=== PATIENT | female | born 1990 | race Caucasian/White ===

== ENCOUNTER 2023-11-26 06:41 | Emergency (ER) | payer BC, SELFPAY ==
[2023-11-26 06:43] VITALS: BP 130/76; PULSE 71; TEMP 36.9; O2SAT 99; BMI 30.4
--- NOTE | 2023-11-26 06:50 | XR_ITS ---
[address] [address] Patient Name: ARLETTE GARCIA MRN: [id number] date: 1990 Sex: F Assigned Patient Location: ER Current Patient Location: ER Accession/Order Number: [id number] Exam Date: 11/26/2023 07:10 Report Date: 11/26/2023 07:56 At the request of: NANCY MARTINEZ Procedure: XR elbow LT min 3V PROCEDURE: XR elbow LT min 3V, XR shoulder LT min 2V, 11/26/2023 7:10 AM EDT CLINICAL INDICATIONS: Traumatic injury, fall one week earlier, left shoulder and elbow pain COMPARISON: None TECHNIQUE: Left shoulder 4 views. Left elbow 3 views. FINDINGS: LEFT SHOULDER: The bones are normal in density. Fracture or malalignment is not seen. Joint spaces are preserved. Chest wall abnormality is not evident. Regional soft tissues are unremarkable. LEFT ELBOW: The bones are normal in density. Fracture or malalignment is not seen. Joint spaces are preserved. No elbow effusion. Regional soft tissues are unremarkable. XR/XR elbow LT min 3V IMPRESSION: 1. No acute traumatic left shoulder or left elbow pathology. Electronically authenticated by: EDGAR AGUIRRE Date: 11/26/2023 07:56
--- NOTE | 2023-11-26 07:05 | XR_ITS ---
The [address] [address] Patient Name: ARLETTE GARCIA MRN: [id number] date: 1990 Sex: F Assigned Patient Location: ER Current Patient Location: ER Accession/Order Number: [id number] Exam Date: 11/26/2023 07:10 Report Date: 11/26/2023 07:45 At the request of: GONZALO CASTILLO Procedure: XR wrist LT min 3V EXAM: XR wrist LT min 3V HISTORY: Fall. COMPARISON: None. TECHNIQUE: AP, oblique and lateral views of the left wrist performed. FINDINGS: The bony alignment and mineralization are normal. There is no fracture. The joint spaces are normal. There is no soft tissue abnormality. XR/XR wrist LT min 3V IMPRESSION: Unremarkable left wrist series. There is no acute fracture or malalignment. Electronically authenticated by: HENRY MATHUR Date: 11/26/2023 07:45
--- NOTE | 2023-11-26 07:05 | XR_ITS ---
[address] [address] Patient Name: ARLETTE GARCIA MRN: [id number] date: 1990 Sex: F Assigned Patient Location: ER Current Patient Location: ER Accession/Order Number: [id number] Exam Date: 11/26/2023 07:10 Report Date: 11/26/2023 07:56 At the request of: GONZALO CASTILLO Procedure: XR shoulder LT min 2V PROCEDURE: XR elbow LT min 3V, XR shoulder LT min 2V, 11/26/2023 7:10 AM EDT CLINICAL INDICATIONS: Traumatic injury, fall one week earlier, left shoulder and elbow pain COMPARISON: None TECHNIQUE: Left shoulder 4 views. Left elbow 3 views. FINDINGS: LEFT SHOULDER: The bones are normal in density. Fracture or malalignment is not seen. Joint spaces are preserved. Chest wall abnormality is not evident. Regional soft tissues are unremarkable. LEFT ELBOW: The bones are normal in density. Fracture or malalignment is not seen. Joint spaces are preserved. No elbow effusion. Regional soft tissues are unremarkable. XR/XR shoulder LT min 2V IMPRESSION: 1. No acute traumatic left shoulder or left elbow pathology. Electronically authenticated by: EDGAR AGUIRRE Date: 11/26/2023 07:56
--- NOTE | 2023-11-26 07:07 | ED_ITS ---
HPI HPI - General Adult General Chief complaint: Extremity Injury, Upper Stated complaint: UPPER EXTREMITY INJURY/FALL Time Seen by Provider: 11/26/23 06:58 Source: patient Mode of arrival: walk-in Limitations: no limitations History of Present Illness HPI narrative: Patient presents to ED complaining of left upper extremity pain. She said she fell not last Monday but the 1 before she fell onto mostly her elbow. She does have Left wrist and left shoulder pain as well. She does have some bruising on her elbow. She also has Some bruising on her left forearm and right knee but she states that is from softball and not from the fall last week.No neck pain no headache no loss of consciousness. No abdominal pain no other complaints at this time. Related Data Home Medications ?Medication ?Instructions ?Recorded ?Confirmed No Known Home Medications 11/26/23 11/26/23 Allergies Allergy/AdvReac Type Severity Reaction Status Date / Time No Known Drug Allergies Allergy Verified 11/26/23 06:47 Opioid HPI Opioid Management Most Recent Opioid Data: Last ED Pain Assessment 11/26/23 07:05 Review of Systems ROS Status of ROS 10 or more systems reviewed and unremark able except as noted in history and below Exam Narrative Exam Narrative: General: alert, no acute distress Cardiovascular: regular rate and rhythm, normal peripheral perfusion. Respiratory: Lungs CTA, respirations non labored. Extremities: Patient has tenderness to the left elbow left wrist and left shoulder. She is tenderness with raising her arm tenderness with palpation of the wrist and tenderness with supination in the elbow. Normal distal pulses and sensation Neurological: oriented x 4, LOC appropriate for age. Constitutional Vital Signs, click to edit/add: Last Vital Signs Temp 98.4 F 11/26/23 06:43 Pulse 71 11/26/23 06:43 Resp 18 11/26/23 06:43 BP 130/76 11/26/23 06:43 Pulse Ox 99 11/26/23 06:43 O2 Del Method Room Air 11/26/23 06:43 Course Vital Signs Vital signs: Vital Signs Temperature 98.4 F 11/26/23 06:43 Pulse Rate 71 11/26/23 06:43 Respiratory Rate 18 11/26/23 06:43 Blood Pressure 130/76 11/26/23 06:43 Pulse Oximetry 99 11/26/23 06:43 Oxygen Delivery Method Room Air 11/26/23 06:43 Temperature 98.4 F 11/26/23 06:43 Pulse Rate 71 11/26/23 06:43 Respiratory Rate 18 11/26/23 06:43 Blood Pressure 130/76 11/26/23 06:43 Pulse Oximetry 99 11/26/23 06:43 Oxygen Delivery Method Room Air 11/26/23 06:43 Medical Decision Making MDM Narrative Medical decision making narrative: Patient's images are nonacute showing no fracture or dislocation. Most likely a sprain of her left elbow wrist and shoulder. I offered her Vijay wrap and sling and she declined at this time. Continue Tylenol Motrin rest ice elevate. Return to ED if worsening symptoms otherwise follow-up with orthopedic surgery. Patient expresses understanding and is comfortable care plan for home Differential Diagnosis Differential Diagnosis: Fracture sprain strain Medical Records Medical records reviewed: Yes I reviewed the patient's medical records Imaging Data Chest x-ray: Radiologist's impression: ITS Impressions Elbow X-Ray 11/26/23 06:50 IMPRESSION: 1. No acute traumatic left shoulder or left elbow pathology. Electronically authenticated by: EDGAR AGUIRRE Date: 11/26/2023 07:56 Shoulder X-Ray 11/26/23 07:05 IMPRESSION: 1. No acute traumatic left shoulder or left elbow pathology. Electronically authenticated by: EDGAR AGUIRRE Date: 11/26/2023 07:56 Wrist X-Ray 11/26/23 07:05 IMPRESSION: Unremarkable left wrist series. There is no acute fracture or malalignment. Electronically authenticated by: HENRY MATHUR Date: 11/26/2023 07:45 Discharge Plan Discharge Stand Alone Forms: Portal Instructions Chief Complaint: Extremity Injury, Upper Clinical Impression: Elbow sprain, Left wrist sprain, Shoulder sprain Patient Disposition: Home, Self-Care Time of Disposition Decision: 08:03 Condition: Good Mode of Transportation: Private Vehicle Prescriptions / Home Meds: No Action No Known Home Medications Print Language: Paraguayan Instructions: Sprain (ED), P.R.I.C.E. Treatment (ED) Referrals: Physician,Non-Staff, [Primary Care Provider] - 1 week Rory Garrido MD [Physician] - 1 week
== END 2023-11-26 08:13 | disposition home or self-care (01) ==
PROVIDERS: Emergency Provider Emergency Medicine
DX: S53.402A Unspecified sprain of left elbow, initial encounter (principal); S63.502A Unspecified sprain of left wrist, initial encounter; S43.402A Unspecified sprain of left shoulder joint, initial encounter; W19.XXXA Unspecified fall, initial encounter
CPT/HCPCS: 73030; 73080; 73110; 99284

== ENCOUNTER 2025-01-31 17:20 | Emergency (ER) | payer BC, SELFPAY ==
[2025-01-31 17:31] VITALS: BP 129/88; PULSE 61; TEMP 36.7; O2SAT 98; BMI 28.9
--- OUTSIDE RECORDS SUMMARY | 2025-01-31 17:32 | XMS_ITS | CCD ---
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 AUTHOR'S ORGANIZ ATION 08/24/2021 [facility] DATE CREATED AUTHOR AUTHOR'S ORGANIZ ATION 09/24/2024 [facility] EPIC REASON FOR VISIT (unrecogniz ed section and content) Reason Comments Gynecologic Exam LMP: silent with IUD , but admits random irregular bleeding for 1-2 daysBC: Mirena inserted 2016.Last pap 09-20-23 neg.Denies breast, urinary, or bowel concerns. C/o no libido. Dyspareunia Occasional pain with intercourse. 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 Relationship Specialty Start Date End Date Unallocated, [place] Provider[facility] [place] [address] PCP - General Family Medicine 09/20/23 Team Status: Inactive Member Role Status Dates PHYSICIAN NO FAMILY Primary Care Provider Active Start: January 27, 2025 End: January 27, 2025 Lesley Langley APRN Attending Provider Active S tart: January 27, 2025 End: January 27, 2025 Goals (unrecognized section and content) Goals may be documented in a n alternate section FOR RECORDS PERTAINING TO PATIENTS WHO ARE OR HAVE BEEN ENROLLED IN A CHEMICAL DEPENDENCY/SUBSTANCEABUSE PROGRAM, SOME INFORMATION MAY BE OMITTED. This clinical summary was aggregated from multiple sources. Caution should be exercised in using it in the provision of clinical care. This summary normalizes information from multiple sources, and as a consequence, information in this document may materially change the coding, format and clinical context of patient data. In addition, data may be omitted in some cases. CLINICAL DECISIONS SHOULD BE BASED ON THE PRIMARY CLINICAL RECORDS. [employer] provides no warranty or guarantee of the accuracy or completeness of information in this document.
--- NOTE | 2025-01-31 17:44 | XR_ITS ---
The [address] [address] Patient Name: ARLETTE GARCIA MRN: [id number] date: 1990 Sex: F Assigned Patient Location: ED.MAIN Current Patient Location: ED.MAIN Accession/Order Number: [id number] Exam Date: 01/31/2025 18:00 Report Date: 01/31/2025 18:46 At the request of: KELLI MARTINEZ MD Procedure: XR shoulder LT min 2V 3 views left shoulder CLINICAL HISTORY: Atraumatic pain COMPARISON: None FINDINGS: No fracture or dislocation. Minor degenerative changes involving the acromioclavicular joint. Soft tissues unremarkable. XR/XR shoulder LT min 2V IMPRESSION: No acute bony process. Impression dictated by: Jorge France M.D. 01/31/2025 6:46 PM Dictation Location: [place] [address] Electronically authenticated by: [id number] Y Date: 01/31/2025 18:46
--- NOTE | 2025-01-31 17:44 | ED_ITS ---
HPI HPI - General Adult General Chief complaint: Extremity Problem, Nontraumatic Stated complaint: PINCHED NERVE IN BACK BY SHOULDER Time Seen by Provider: 01/31/25 17:34 Source: patient Mode of arrival: walk-in Limitations: no limitations History of Present Illness HPI narrative: 35-year-old female presented to the emergency department for pain in her left shoulder. She points to the posterior aspect indicate the area of pain and she woke up this way today. No unusual activity or any sort of an injury. She feels like it is a pinched nerve. This happened once before but on the right- hand side. She is right-handed. No chest pain or shortness of breath. Related Data Previous Rx's ?Medication ?Instructions ?Recorded acetaminophen 300 mg-codeine 30 mg 1 tab PO Q6H PRN pa in 5 days #20 01/31/25 tablet tabs ibuprofen 800 mg tablet 800 mg PO Q8H PRN pain #20 t abs 01/31/25 methocarbamol 500 mg tablet 500 mg PO Q8H PRN pain #20 tabs 01/31/25 Allergies Allergy/AdvReac Type Severity Reaction Status Date / Time No Known Drug Allergies Allergy Verified 01/31/25 17:37 Opioid HPI Opioid Management Most Recent Opioid Data: Last Pain Scale 8 Today, 17:50 Last MAR Pain Assessment Today, 17:50 Review of Systems ROS Narrative A ten point review of systems is negative except as noted above. PFSH PFSH Social History Little interest or pleasure in doing things: not at all Feeling down, depressed, or hopeless: not at all Exam Narrative Exam Narrative: Nurses note and vital signs reviewed and patient is not hypoxic. General:The patient appears uncomfortable Skin:Warm, dry, no pallor noted.There is no rash noted. Head:Normocephalic, atraumatic Eye: Normal conjunctiva, no drainage Ears, Nose, Mouth, and Throat: oral mucosa is moist. Nares patent. Cardiovascular:Regular Rate and Rhythm Respiratory:Patient is in no distress, no accessory muscle use, lungs are clear to auscultation, no wheezing, rales or rhonchi Back:non-tender GI:Normal bowel sounds, no tenderness to palpation, no masses appreciated.No rebound, guarding, or rigidity noted. Musculoskeletal: Left shoulder has no bruise rash or abrasion. She is wearing a lidocaine patch posteriorly. She is reluctant to move her arm. Radial pulse 2+. Neurological: Awake and alert Psychiatric:Cooperative Constitutional Vital Signs, click to edit/add: Last Vital Signs Temp 98.0 F 01/31/25 17:31 Pulse 61 01/31/25 17:31 Resp 18 01/31/25 17:31 BP 129/88 01/31/25 17:31 Pulse Ox 98 01/31/25 17:31 O2 Del Method Room Air 01/31/25 17:31 Course Vital Signs Vital signs: Vital Signs Temperature 98.0 F 01/31/25 17:31 Pulse Rate 61 01/31/25 17:31 Respiratory Rate 18 01/31/25 17:31 Blood Pressure 129/88 01/31/25 17:31 Pulse Oximetry 98 01/31/25 17:31 Oxygen Delivery Method Room Air 01/31/25 17:31 Temperature 98.0 F 01/31/25 17:31 Pulse Rate 61 01/31/25 17:31 Respiratory Rate 18 01/31/25 17:31 Blood Pressure 129/88 01/31/25 17:31 Pulse Oximetry 98 01/31/25 17:31 Oxygen Delivery Method Room Air 01/31/25 17:31 Medical Decision Making MDM Narrative Medical decision making narrative: X-rays per radiologist show minimal arthritic changes, no acute findings. She was given IM Toradol and and was prescribed Tylenol 3, methocarbamol, and ibuprofen. Treatment diagnosis and follow-up were discussed with the patient. Differential Diagnosis Differential Diagnosis: Arthritis, fracture, muscle strain, calcific tendinitis Imaging Data Left shoulder x-ray: Radiologist's impression: ITS Impressions Shoulder X-Ray 01/31/25 17:44 IMPRESSION: No acute bony process. Impression dictated by: Jorge France M.D. 01/31/2025 6:46 PM Dictation Location: [place] [address] Electronically authenticated by: [id number] Y Date: 01/31/2025 18:46 Discharge Plan Discharge Chief Complaint: Extremity Problem, Nontraumatic Clinical Impression: Acute pain of left shoulder Patient Disposition: Home, Self-Care Time of Disposition Decision: 18:48 Condition: Good Mode of Transportation: Private Vehicle Prescriptions / Home Meds: New acetaminophen-codeine 300-30 mg tablet 1 tab PO Q6H PRN (Reason: pain) 5 Days Qty: 20 0RF methocarbamol 500 mg tablet 500 mg PO Q8H PRN (Reason: pain) Qty: 20 0RF ibuprofen 800 mg tablet 800 mg PO Q8H PRN (Reason: pain) Qty: 20 0RF Print Language: Irish Instructions: Shoulder Pain (ED) Referrals: Physician,Non-Staff, MD [Primary Care Provider] - 1 week
[2025-01-31] MEDS: KETOROLAC TROMETHAMINE 60 MG/2 ML VIAL IM (17:50)
--- NOTE | 2025-01-31 17:59 | PC.NURSE ---
17:59- patient report given to MICHAEL Robledo at this time
== END 2025-01-31 19:04 | disposition home or self-care (01) ==
PROVIDERS: Emergency Provider Emergency Medicine
DX: M25.512 Pain in left shoulder (principal)
CPT/HCPCS: 73030; 96372; 99284; J1885